=== PATIENT | male | born 1985 | race Hispanic/Latino ===

== ENCOUNTER 2023-12-24 17:55 | Emergency (ER) | payer SELFPAY ==
--- OUTSIDE RECORDS SUMMARY | 2023-12-24 17:59 | XMS REPORT | Continuity of Care Document ---
Author Name Unknown Address [address] [facility] [address] [place] [address] [facility] Address [address] [facility] [address] [place] [address] Care Team Providers Care Ways Operator Name Role Phone Raisa Mitchell Primary Care Physician [phone] Medications Ordered Medication Name Filled Medication Name Start Date Stop Date Current Medication? Ordering Clinician Indication Dosage Frequency Signature (SIG) Comments Components Source lisinopril 20 mg tablet 08-20 00:00: 00 Yes 1mg Liam De La Vega levothyroxi ne 100 mcg tablet 08-20 00:00: 00 Yes 1mcg Liam De La Vega TAKE 1 TABLET DAILY. 11-22 00:00: 00 Yes 20 Liamswathi De La Vega TAKE 1 TABLET DAILY. 11-22 00:00: 00 08-20 00:00 :00 No 100 Liam De La Vega TAKE 1 TABLET DAILY. 06-13 00:00: 00 08-20 00:00 :00 No 20 Liam Yamel De La Vega TAKE 1 TABLET DAILY. 06-13 00:00: 00 08-20 00:00 :00 No 100 Liam Yamel De La Vega Dose Unknown 10-11 00:00: 00 Yes Liam Yamel De La Vega levothyroxi ne 100 mcg tablet 10-09 00:00: 00 Yes 1mcg Liam F Ceferino Dose Unknown 10-09 00:00: 00 Yes Liam F Ceferino Dose Unknown 10-08 00:00: 00 Yes Liam Yamel De La Vega levothyroxi ne 100 mcg tablet 10-08 00:00: 00 Yes 1mcg Liam F Ceferino Dose Unknown 10-08 00:00: 00 Yes Liamswathi De La Vega Vital Signs Vital Name Observation Time Observation Value Comments S ource Respiratory Rate 2023-08-21 10:23:00 Liam F Ceferino BP Systolic 2023-08-21 10:23:00 150 mm[Hg] Step hen F Ceferino BP Diastolic 2023-08-21 10:23:00 93 mm[Hg] Heath phen F Ceferino Weight Measured 2023-08-21 10:23:00 243.20 pounds Liam F Ceferino Height Measured 2023-08-21 10:23:00 67.00 inches Liam F Ceferino Body Temperature 2023-08-21 10:23:00 98.10 degrees Liam F Ceferino Heart Rate 2023-08-21 10:23:00 88.00 /min Deneen en F Ceferino BP Systolic 2022-01-14 11:03:00 125 mm[Hg] Step hen F Ceferino BP Diastolic 2022-01-14 11:03:00 91 mm[Hg] Heath phen F Ceferino Weight Measured 2022-01-14 11:03:00 256.40 pounds Liam F Ceferino Height Measured 2022-01-14 11:03:00 67.00 inches Liam F Ceferino Body Temperature 2022-01-14 11:03:00 98.30 degrees Liam F Ceferino Heart Rate 2022-01-14 11:03:00 87.00 /min Deneen en F Ceferino Respiratory Rate 2022-01-14 11:03:00 18.00 /min Liam F Ceferino BP Systolic 2021-10-08 13:42:00 126 mm[Hg] Step hen F Ceferino BP Diastolic 2021-10-08 13:42:00 84 mm[Hg] Heath phen F Ceferino Weight Measured 2021-10-08 13:42:00 251.60 pounds Liam F Ceferino Height Measured 2021-10-08 13:42:00 Liam F Ceferino Body Temperature 2021-10-08 13:42:00 98.20 degrees Liam F Ceferino Heart Rate 2021-10-08 13:42:00 104.00 /min Step hen F Ceferino Respiratory Rate 2021-10-08 13:42:00 18.00 /min Liam F Ceferino Encounters Start Date/Time End Date/Time Encounter Type Admission Type Attending [facility] Care Department Encounter ID Source 2023-08-21 10:22:50 2023-08-21 10:22:50 Outpatient [facility] [id number] Liam De La Vega 2023-08-21 00:00:00 2023-08-21 00:00:00 Outpatient Visit [facility] [id number] Liam De La Vega 2022-06-13 00:00:00 2022-06-13 00:00:00 Outpatient Visit [facility] [id number] Liam De La Vega 2022-01-14 00:00:00 2022-01-14 00:00:00 Outpatient Visit [facility] [id number] Liam De La Vega Results Test Description Test Time Test Comments Results Result Co mments Source TSH, THIRD [id number] 04:22:03* Test Item Value Reference Range Interpretation Comme nts TSH, THIRD GENERATION (test code = 2821) 1.810 UIU/ML 0.400-4.100 UNLESS OTHERWISE INDICATED, ALL TESTING PERFORMED AT [facility] [address] [place] [address] DEWATERER OPERATOR: CARLOS MANUEL MATHEWS M.D. CLIA NUMBER [id number] [facility] [place]. [id number] COMPREHENSIVE METABOLIC [id number] 04:18:55* Test Item Value Reference Range Interpretation Comme nts GLUCOSE (test code = 2217) 94 MG/DL 70-99 BUN (test code = 2208) 15 MG/DL 6-20 CREATININE (test code = 2214) 1.02 MG/DL 0.80-1.40 eGFR (2020 CKD-EPI) (test co de = 32211) 98 ML/MIN/1.73 >60 CALC BUN/CREAT (test code = 2235) 15 RATIO 6-28 SODIUM (test code = 2231) 138 MEQ/L 133-146 POTASSIUM (test code = 2228) 4.7 MEQ/L 3.5-5.4 CHLORIDE (test code = 2215) 100 MEQ/L 95-107 CARBON DIOXIDE (test code = 2206) 24 MEQ/L 19-31 CALCIUM (test code = 2208) 10.0 MG/DL 8.5-10.5 PROTEIN, TOTAL (test code = 2228) 7.2 G/DL 6.1-8.3 ALBUMIN (test code = 2200) 4.3 G/DL 3.5-5.2 CALC GLOBULIN (test code = 2240) 2.9 G/DL 1.9-3.7 CALC A/G RATIO (test code = 223) 1.5 RATIO 1.0-2.6 BILIRUBIN, TOTAL (test code = 2206) 0.3 MG/DL <=1.2 ALKALINE PHOSPHATASE (test code = 2203) 85 U/L 40-117 AST (test code = 221) 22 U/L 9-50 ALT (test code = 2218) 30 U/L 5-50 LIPID [id number] 04:18:55* Test Item Value Reference Range Interpretation Comme nts CHOLESTEROL (test code = 2209) 238 MG/DL <200 H TRIGLYCERIDES (test code = 2231) 197 MG/DL <150 H HDL CHOLESTEROL (test code = 2219) 54 MG/DL >39 CALC LDL CHOL (test code = 2236) 150 MG/DL <100 H NOTE: CALCULATED LDL IS BASED ON BENTON-MICHAELS METHOD WHICHINCLUDES ADJUSTABLE TRIGLYCERIDE:VLDL CHOLESTEROL RATIO.THIS FACTOR VARIES BY MEASURED TRIGLYCERIDE AND NON-HDLCHOLESTEROL CONCENTRATIONS WITH INCREASED CALCULATED LDL SEENIN HIGHER TRIGLYCERIDE OR LOWER NON-HDL SPECIMENS. FOR MOREINFORMATION, SEE CLIENT ANNOUNCEMENT AT [email or web address] [email or web address] RATIO LDL/HDL (test code = 2237) 2.78 RATIO <3.55 CBC W/AUTO DIFF WITH [id number] 02:29:04* Test Item Value Reference Range Interpretation Comme nts WBC (test code = 1001) 8.4 K/UL 3.5-11.0 RBC (test code = 1002) 5.18 M/UL 4.50-6.10 HEMOGLOBIN (test code = 1003) 14.7 G/DL 13.5-17.0 HEMATOCRIT (test code = 1004) 43.7 % 40.0-51.0 MCV (test code = 1005) 84.4 fL 80.0-99.0 MCH (test code = 1006) 28.4 PG 25.0-33.0 MCHC (test code = 1007) 33.6 G/DL 31.0-36.0 RDW (test code = 1038) 12.5 % 11.5-15.0 NEUTROPHILS (test code = 1008) 71.8 % LYMPHOCYTES (test code = 1010) 22.6 % MONOCYTES (test code = 1011) 3.8 % EOSINOPHILS (test code = 1012) 1.2 % BASOPHILS (test code = 1013) 0.4 % IMMATURE GRANULOCYTES (test code = 1036) 0.2 % NUCLEATED RBCS (test code = 1065) 0.0 /100 WBC'S See_Comment [Automated messa ge] The system which generated this result transmitted reference range: 0.0. The reference range was not used to interpret this result as normal/abnormal. PLATELET COUNT (test code = 1015) 374 K/UL 130-400 ABSOLUTE NEUTROPHILS (test code = 1066) 6.02 K/UL 1.50-7.50 ABSOLUTE LYMPHOCYTES (test code = 1067) 1.89 K/UL 1.00-4.00 ABSOLUTE MONOCYTES (test code = 1068) 0.32 K/UL 0.20-1.00 ABSOLUTE EOSINOPHILS (test code = 1040) 0.10 K/UL 0.00-0.50 ABSOLUTE BASOPHILS (test code = 1069) 0.03 K/UL 0.00-0.20 ABS IMMATURE GRANULOCYTES (test code = 1020) 0.02 K/UL 0.00-0.10 ABS NUCLEATED RBCS (test code = 15083) 0.00 K/UL 0.00-0.11 TSH, THIRD [id number] 05:27:20* Test Item Value Reference Range Interpretation Comme nts TSH, THIRD GENERATION (test code = 2821) 2.730 UIU/ML 0.400-4.100 UNLESS OTHERWISE INDICATED, [facility] [address] [place] [address] DEWATERER OPERATOR: FIONA CONTI M.D. CLIA NUMBER [id number] [place]. [id number] TSH, THIRD [id number] 00:00:00* Test Item Value Reference Range Interpretation Comme nts TSH, THIRD GENERATION (test code = 2821) 2.730 UIU/ML AMBERLY Yan [id number] 00:00:00* Test Item Value Reference Range Interpretation Comme nts TSH, THIRD GENERATION (test code = 2821) 2.730 UIU/ML AMBERLY Yan [id number] 00:00:00* Test Item Value Reference Range Interpretation Comme lizzie TSH, THIRD GENERATION (test code = 2821) 2.730 UIU/ML AMBERLY Yan [id number] 06:27:00* Test Item Value Reference Range Interpretation Comme lizzie TSH, THIRD GENERATION (test code = 2821) 4.600 UIU/ML 0.400-4.100 H UNLESS OTHERWISE INDICATED, ALL TESTING PERFORMED [facility] [address] [place] [address] DEWATERER OPERATOR: FIONA CONTI M.D. CLIA NUMBER [id number] [facility] [place]. [id number] COMPREHENSIVE METABOLIC [id number] 06:03:59* Test Item Value Reference Range Interpretation Comme nts GLUCOSE (test code = 2217) 98 MG/DL 70-99 BUN (test code = 2208) 35 MG/DL 6-20 H CREATININE (test code = 2214) 1.41 MG/DL 0.80-1.40 H eGFR (2020 CKD-EPI) (test code = 49823) 67 ML/MIN/1.73 >60 CALC BUN/CREAT (test code = 2235) 25 RATIO 6-28 SODIUM (test code = 2231) 139 MEQ/L 133-146 POTASSIUM (test code = 2228) 3.9 MEQ/L 3.5-5.4 CHLORIDE (test code = 2215) 98 MEQ/L 95-107 CARBON DIOXIDE (test code = 2206) 27 MEQ/L 19-31 CALCIUM (test code = 2209) 10.2 MG/DL 8.5-10.5 PROTEIN, TOTAL (test code = 2229) 7.5 G/DL 6.1-8.3 ALBUMIN (test code = 2201) 4.6 G/DL 3.5-5.2 CALC GLOBULIN (test code = 2240) 2.9 G/DL 1.9-3.7 CALC A/G RATIO (test code = 2234) 1.6 RATIO 1.0-2.6 BILIRUBIN, TOTAL (test code = 2207) 0.3 MG/DL See_Comment [Automated me ssage] The system which generated this result transmitted reference range: <=1.2. The reference range was not used to interpret this result as normal/abnormal. ALKALINE PHOSPHATASE (test code = 4) 67 U/L 40-112 AST (test code = 2218) 27 U/L 9-50 ALT (test code = 2219) 38 U/L 5-50 LIPID [id number] 06:03:59* Test Item Value Reference Range Interpretation Comme nts CHOLESTEROL (test code = 2210) 240 MG/DL <200 H TRIGLYCERIDES (test code = 2232) 323 MG/DL <150 H HDL CHOLESTEROL (test code = 0) 45 MG/DL >39 CALC LDL CHOL (test code = 7) 145 MG/DL <100 H NOTE: CALCULATED LDL IS BASED ON BENTON-MICHAELS METHOD WHICHINCLUDES ADJUSTABLE TRIGLYCERIDE:VLDL CHOLESTEROL RATIO.THIS FACTOR VARIES BY MEASURED TRIGLYCERIDE AND NON-HDLCHOLESTEROL CONCENTRATIONS WITH INCREASED CALCULATED LDL SEENIN HIGHER TRIGLYCERIDE OR LOWER NON-HDL SPECIMENS. FOR MOREINFORMATION, SEE CLIENT ANNOUNCEMENT AT [email or web address] RISK RATIO LDL/HDL (test code = 2238) 3.22 RATIO <3.55 CBC W/AUTO DIFF WITH [id number] 04:23:01* Test Item Value Reference Range Interpretation Comme nts WBC (test code = 1001) 8.7 K/UL 3.5-11.0 RBC (test code = 1002) 4.40 M/UL 4.50-6.10 L HEMOGLOBIN (test code = 1003) 12.8 G/DL 13.5-17.0 L HEMATOCRIT (test code = 1004) 37.1 % 40.0-51.0 L MCV (test code = 1005) 84.3 fL 80.0-99.0 MCH (test code = 1006) 29.1 PG 25.0-33.0 MCHC (test code = 1007) 34.5 G/DL 31.0-36.0 RDW (test code = 1038) 12.2 % 11.5-15.0 NEUTROPHILS (test code = 1008) 61.7 % LYMPHOCYTES (test code = 1010) 29.6 % MONOCYTES (test code = 1011) 7.4 % EOSINOPHILS (test code = 1012) 0.9 % BASOPHILS (test code = 1013) 0.2 % IMMATURE GRANULOCYTES (test code = 1036) 0.2 % NUCLEATED RBCS (test code = 1065) 0.0 /100 WBC'S See_Comment [Automated Dreamforgea ge] The system which generated this result transmitted reference range: 0.0. The reference range was not used to interpret this result as normal/abnormal. PLATELET COUNT (test code = 1015) 347 K/UL 130-400 ABSOLUTE NEUTROPHILS (test code = 1066) 5.33 K/UL 1.50-7.50 ABSOLUTE LYMPHOCYTES (test code = 1067) 2.56 K/UL 1.00-4.00 ABSOLUTE MONOCYTES (test code = 1068) 0.64 K/UL 0.20-1.00 ABSOLUTE EOSINOPHILS (test code = 1040) 0.08 K/UL 0.00-0.50 ABSOLUTE BASOPHILS (test code = 1069) 0.02 K/UL 0.00-0.20 ABS IMMATURE GRANULOCYTES (test code = 1020) 0.02 K/UL 0.00-0.10 ABS NUCLEATED RBCS (test code = 79276) 0.00 K/UL 0.00-0.11 COMPREHENSIVE METABOLIC [id number] 00:00:00* Test Item Value Reference Range Interpretation Comme nts GLUCOSE (test code = 2217) 98 MG/DL BUN (test code = 2208) 35 MG/DL CREATININE (test code = 2214) 1.41 MG/DL eGFR (2020 CKD-EPI) (test co de = 96335) 67 ML/MIN/1.73 CALC BUN/CREAT (test code = 2235) 25 RATIO SODIUM (test code = 2231) 139 MEQ/L POTASSIUM (test code = 2228) 3.9 MEQ/L CHLORIDE (test code = 2215) 98 MEQ/L CARBON DIOXIDE (test code = 2206) 27 MEQ/L CALCIUM (test code = 2209) 10.2 MG/DL PROTEIN, TOTAL (test code = 2229) 7.5 G/DL ALBUMIN (test code = 2201) 4.6 G/DL CALC GLOBULIN (test code = 2240) 2.9 G/DL CALC A/G RATIO (test code = 2234) 1.6 RATIO BILIRUBIN, TOTAL (test code = 2207) 0.3 MG/DL ALKALINE PHOSPHATASE (test code = 2204) 67 U/L AST (test code = 2218) 27 U/L ALT (test code = 2219) 38 U/L Liam De La VegaCBC W/AUTO [id number] 00:00:00* Test Item Value Reference Range Interpretation Comme nts WBC (test code = 1001) 8.7 K/UL RBC (test code = 1002) 4.40 M/UL HEMOGLOBIN (test code = 1003) 12.8 G/DL HEMATOCRIT (test code = 1004) 37.1 % MCV (test code = 1005) 84.3 fL MCH (test code = 1006) 29.1 PG MCHC (test code = 1007) 34.5 G/DL RDW (test code = 1038) 12.2 % NEUTROPHILS (test code = 1008) 61.7 % LYMPHOCYTES (test code = 1010) 29.6 % MONOCYTES (test code = 1011) 7.4 % EOSINOPHILS (test code = 1012) 0.9 % BASOPHILS (test code = 1013) 0.2 % IMMATURE GRANULOCYTES (test code = 1036) 0.2 % NUCLEATED RBCS (test code = 1065) 0.0 /100WBC'S PLATELET COUNT (test code = 1015) 347 K/UL ABSOLUTE NEUTROPHILS (test c ode = 1066) 5.33 K/UL ABSOLUTE LYMPHOCYTES (test c ode = 1067) 2.56 K/UL ABSOLUTE MONOCYTES (test cod e = 1068) 0.64 K/UL ABSOLUTE EOSINOPHILS (test c ode = 1040) 0.08 K/UL ABSOLUTE BASOPHILS (test cod e = 1069) 0.02 K/UL ABS IMMATURE GRANULOCYTES (t est code = 1020) 0.02 K/UL ABS NUCLEATED RBCS (test cod e = 52463) 0.00 K/UL Liam De La VegaLIPID [id number] 00:00:00* Test Item Value Reference Range Interpretation Comme nts CHOLESTEROL (test code = 2210) 240 MG/DL TRIGLYCERIDES (test code = 2232) 323 MG/DL HDL CHOLESTEROL (test code = 2220) 45 MG/DL CALC LDL CHOL (test code = 2237) 145 MG/DL RISK RATIO LDL/HDL (test cod e = 2238) 3.22 RATIO Liam De La [id number] 00:00:00* Test Item Value Reference Range Interpretation Comme nts TSH, THIRD GENERATION (test code = 2821) 4.600 UIU/ML Liam De La VegaCOMPREHENSIVE METABOLIC [id number] 00:00:00* Test Item Value Reference Range Interpretation Comme nts GLUCOSE (test code = 2217) 98 MG/DL BUN (test code = 2208) 35 MG/DL CREATININE (test code = 2214) 1.41 MG/DL eGFR (2020 CKD-EPI) (test co de = 75112) 67 ML/MIN/1.73 CALC BUN/CREAT (test code = 2235) 25 RATIO SODIUM (test code = 2231) 139 MEQ/L POTASSIUM (test code = 2228) 3.9 MEQ/L CHLORIDE (test code = 2215) 98 MEQ/L CARBON DIOXIDE (test code = 2206) 27 MEQ/L CALCIUM (test code = 2209) 10.2 MG/DL PROTEIN, TOTAL (test code = 2229) 7.5 G/DL ALBUMIN (test code = 2201) 4.6 G/DL CALC GLOBULIN (test code = 2240) 2.9 G/DL CALC A/G RATIO (test code = 2234) 1.6 RATIO BILIRUBIN, TOTAL (test code = 2207) 0.3 MG/DL ALKALINE PHOSPHATASE (test code = 2204) 67 U/L AST (test code = 2218) 27 U/L ALT (test code = 2219) 38 U/L Liam De La VegaCBC W/AUTO [id number] 00:00:00* Test Item Value Reference Range Interpretation Comme nts WBC (test code = 1001) 8.7 K/UL RBC (test code = 1002) 4.40 M/UL HEMOGLOBIN (test code = 1003) 12.8 G/DL HEMATOCRIT (test code = 1004) 37.1 % MCV (test code = 1005) 84.3 fL MCH (test code = 1006) 29.1 PG MCHC (test code = 1007) 34.5 G/DL RDW (test code = 1038) 12.2 % NEUTROPHILS (test code = 1008) 61.7 % LYMPHOCYTES (test code = 1010) 29.6 % MONOCYTES (test code = 1011) 7.4 % EOSINOPHILS (test code = 1012) 0.9 % BASOPHILS (test code = 1013) 0.2 % IMMATURE GRANULOCYTES (test code = 1036) 0.2 % NUCLEATED RBCS (test code = 1065) 0.0 /100WBC'S PLATELET COUNT (test code = 1015) 347 K/UL ABSOLUTE NEUTROPHILS (test c ode = 1066) 5.33 K/UL ABSOLUTE LYMPHOCYTES (test c ode = 1067) 2.56 K/UL ABSOLUTE MONOCYTES (test cod e = 1068) 0.64 K/UL ABSOLUTE EOSINOPHILS (test c ode = 1040) 0.08 K/UL ABSOLUTE BASOPHILS (test cod e = 1069) 0.02 K/UL ABS IMMATURE GRANULOCYTES (t est code = 1020) 0.02 K/UL ABS NUCLEATED RBCS (test cod e = 32253) 0.00 K/UL Liam De La VegaLIPID [id number] 00:00:00* Test Item Value Reference Range Interpretation Comme nts CHOLESTEROL (test code = 2210) 240 MG/DL TRIGLYCERIDES (test code = 2232) 323 MG/DL HDL CHOLESTEROL (test code = 2220) 45 MG/DL CALC LDL CHOL (test code = 2237) 145 MG/DL RISK RATIO LDL/HDL (test cod e = 2238) 3.22 RATIO Liam De La [id number] 00:00:00* Test Item Value Reference Range Interpretation Comme nts TSH, THIRD GENERATION (test code = 2821) 4.600 UIU/ML Liam Montesinos [place] [id number] 00:00:00* Test Item Value Reference Range Interpretation Comme nts GLUCOSE (test code = 2217) 98 MG/DL BUN (test code = 2208) 35 MG/DL CREATININE (test code = 2214) 1.41 MG/DL eGFR (2020 CKD-EPI) (test co de = 69891) 67 ML/MIN/1.73 CALC BUN/CREAT (test code = 2235) 25 RATIO SODIUM (test code = 2231) 139 MEQ/L POTASSIUM (test code = 2228) 3.9 MEQ/L CHLORIDE (test code = 2215) 98 MEQ/L CARBON DIOXIDE (test code = 2206) 27 MEQ/L CALCIUM (test code = 2209) 10.2 MG/DL PROTEIN, TOTAL (test code = 2229) 7.5 G/DL ALBUMIN (test code = 2201) 4.6 G/DL CALC GLOBULIN (test code = 2240) 2.9 G/DL CALC A/G RATIO (test code = 2234) 1.6 RATIO BILIRUBIN, TOTAL (test code = 2207) 0.3 MG/DL ALKALINE PHOSPHATASE (test code = 2204) 67 U/L AST (test code = 2218) 27 U/L ALT (test code = 2219) 38 U/L Liam De La VegaCBC W/AUTO [id number] 00:00:00* Test Item Value Reference Range Interpretation Comme nts WBC (test code = 1001) 8.7 K/UL RBC (test code = 1002) 4.40 M/UL HEMOGLOBIN (test code = 1003) 12.8 G/DL HEMATOCRIT (test code = 1004) 37.1 % MCV (test code = 1005) 84.3 fL MCH (test code = 1006) 29.1 PG MCHC (test code = 1007) 34.5 G/DL RDW (test code = 1038) 12.2 % NEUTROPHILS (test code = 1008) 61.7 % LYMPHOCYTES (test code = 1010) 29.6 % MONOCYTES (test code = 1011) 7.4 % EOSINOPHILS (test code = 1012) 0.9 % BASOPHILS (test code = 1013) 0.2 % IMMATURE GRANULOCYTES (test code = 1036) 0.2 % NUCLEATED RBCS (test code = 1065) 0.0 /100WBC'S PLATELET COUNT (test code = 1015) 347 K/UL ABSOLUTE NEUTROPHILS (test c ode = 1066) 5.33 K/UL ABSOLUTE LYMPHOCYTES (test c ode = 1067) 2.56 K/UL ABSOLUTE MONOCYTES (test cod e = 1068) 0.64 K/UL ABSOLUTE EOSINOPHILS (test c ode = 1040) 0.08 K/UL ABSOLUTE BASOPHILS (test cod e = 1069) 0.02 K/UL ABS IMMATURE GRANULOCYTES (t est code = 1020) 0.02 K/UL ABS NUCLEATED RBCS (test cod e = 70834) 0.00 K/UL Liam De La VegaLIPID [id number] 00:00:00* Test Item Value Reference Range Interpretation Comme nts CHOLESTEROL (test code = 2210) 240 MG/DL TRIGLYCERIDES (test code = 2232) 323 MG/DL HDL CHOLESTEROL (test code = 2220) 45 MG/DL CALC LDL CHOL (test code = 2237) 145 MG/DL RISK RATIO LDL/HDL (test cod e = 2238) 3.22 RATIO Liam De La [id number] 00:00:00* Test Item Value Reference Range Interpretation Comme nts TSH, THIRD GENERATION (test code = 2821) 4.600 UIU/ML Liam De La Vega Notes Date/Time Note Provider Source Liam Celaya [facility]2023-02-23 00:00:00 Liam Celaya [facility]2022-09-26 00:00:00 Liam Celaya [facility]
--- NOTE | 2023-12-24 19:03 | RAD REPORT ---
EXAM DESCRIPTION: CT - Head Brain Wo Cont - 12/24/2023 6:48 pm CLINICAL HISTORY: Headache COMPARISON: none TECHNIQUE: Computed axial tomography of the head was obtained. IV contrast was not requested. All CT scans are performed using dose optimization technique as appropriate and may include automated exposure control or mA/KV adjustment according to patient size. FINDINGS: An intracranial bleed is not seen The ventricles are normal in caliber No significant hypodense areas within the brain visualized No extra-axial fluid collection is noted. Fluid within the sinuses/ mastoids is not seen IMPRESSION: No acute intracranial abnormality is seen If patient's symptoms persist MRI of the brain would be recommended
[2023-12-24] MEDS ORDERED: KETOROLAC 30 MG/ML INJ ONE (19:34)
[2023-12-24] MEDS ORDERED: dexAMETHasone 10 MG/ML VIAL ONE (19:34)
[2023-12-24] MEDS ORDERED: DIPHENHYDRAMINE 50 MG/ML VIAL ONE (19:35)
[2023-12-24] MEDS ORDERED: NA CHLORIDE 0.9% 1,000 ML ONE (19:35)
[2023-12-24] MEDS ORDERED: METOCLOPRAMIDE 10 MG/2mL INJ ONE (19:35)
--- NOTE | 2023-12-24 21:02 | EDPHYS ---
Physician Documentation [facility] Name: George Villegas Age: 38 yrs Sex: Male : 1985 Arrival Date: 12/24/2023 Time: 17:55 Bed 6 Private MD: ED Physician Abbey Moss HPI: 12/23 21:38 This 38 yrs old Male presents to ER via Ambulatory with complaints of Headache.kb 21:38 Pt reports migraine to right side of head for one week. States he has been taking kb tylenol and ibuprofen which makes it go away for a few hours but it returns. Reports nausea, photophobia. States pain is also worse with noise and movement. Historical: - Allergies: 18:03 No Known Allergies; kc6 - PMHx: 18:03 Hypertensive disorder; Hypothyroidism; kc6 - PSHx: 18:03 None; kc6 - Immunization history:: Adult Immunizations up to date. - Infectious Disease History:: Denies. - Social history:: Smoking status: Patient reports the use of cigarette tobacco products, smokes one pack cigarettes per day. ROS: 21:38 Constitutional: As per HPI kb Exam: 21:38 Constitutional: This is a well developed, well nourished patient who is awake, alert, kb and in no acute distress. Head/Face: Normocephalic, atraumatic. Eyes: Pupils equal round and reactive to light, extra-ocular motions intact. Lids and lashes normal. Conjunctiva and sclera are non-icteric and not injected. Cornea within normal limits. Periorbital areas with no swelling, redness, or edema. ENT: Moist Mucous membranes Cardiovascular: Regular rate Respiratory: Respirations even and unlabored. No increased work of breathing. Talking in full sentences Abdomen/GI: Soft, non-tender. No distention Skin: Warm, dry with normal turgor. Normal color. MS/ Extremity: Pulses equal, no cyanosis. Neurovascular intact. Full, normal range of motion. Neuro: Awake and alert, GCS 15, oriented to person, place, time, and situation. Moves all extremities. Normal gait. Vital Signs: 18:01 BP 141 / 95; Pulse 89; Resp 17 S; Temp 97.2(TE); Pulse Ox 96% on R/A; Height 5 ft. 11 kc6 in. (R); Pain 10/10; 19:20 BP 117 / 81; Pulse 82; Resp 17 S; Pulse Ox 97% on R/A; ha1 20:00 BP 121 / 85; Pulse 82; Resp 17 S; Pulse Ox 98% on R/A; ha1 21:00 BP 110 / 94; Pulse 81; Resp 17 S; Pulse Ox 98% on R/A; ha1 18:01 Pain Scale: Adult kc6 Louise Coma Score: 21:34 Eye Response: spontaneous(4). Motor Response: obeys commands(6). Verbal Response: kb oriented(5). Total: 15. MDM: 18:04 Patient medically screened. kb 21:34 Differential diagnosis: migraine, tension headache. Data reviewed: vital signs, nurses kb notes. Counseling: I had a detailed discussion with the patient and/or guardian regarding the historical points, exam findings, and any diagnostic results supporting the discharge/admit diagnosis, radiology results, the need for outpatient follow up, a family practitioner, to return to the emergency department if symptoms worsen or persist or if there are any questions or concerns that arise at home. 12/23 18:07 Order name: CT Head Brain wo Cont; Complete Time: 19:05 kb 12/23 19:06 Order name: IV Start; Complete Time: 19:31 kb Administered Medications: 19:46 Drug: NS 0.9% IV 1000 ml IV at 1000 ml once Route: IV; Rate: 1000 ml; Site: right ha1 antecubital; 21:12 Follow up: Response: No adverse reaction; IV Status: Completed infusion; IV Intake: ha1 1000ml 19:46 Drug: Ketorolac IVP 15 mg IVP once Route: IVP; Site: right antecubital; ha1 20:10 Follow up: Response: No adverse reaction; Marked relief of symptoms; Pain is decreased ha1 19:48 Drug: diphenhydrAMINE IVP 12.5 mg IVP once Route: IVP; Site: right antecubital; ha1 20:10 Follow up: Response: No adverse reaction; Marked relief of symptoms ha1 19:50 Drug: Decadron - Dexamethasone IVP 10 mg IVP once Route: IVP; Site: right antecubital; ha1 20:10 Follow up: Response: No adverse reaction; Marked relief of symptoms ha1 19:50 Drug: metoCLOPramide IVP 10 mg IVP once; over 1 to 2 minutes Route: IVP; Site: right ha1 antecubital; 20:10 Follow up: Response: No adverse reaction; Marked relief of symptoms ha1 21:03 Drug: HYDROcodone-acetaminophen PO 5 mg-325 mg 1 tabs PO once Route: PO; ha1 21:12 Follow up: Response: No adverse reaction; Pain is decreased; RASS: Alert and Calm (0) ha1 Disposition Summary: 12/24/23 21:01 Discharge Ordered Notes: Location: Home kb Condition: Stable kb Diagnosis - Headache kb Followup: kb - With: Emergency Department - When: As needed - Reason: Worsening of condition Followup: kb - With: Private Physician - When: 2 - 3 days - Reason: Recheck today's complaints, Continuance of care, Re-evaluation by your physician Discharge Instructions: - Discharge Summary Sheet kb - Migraine Headache, [id number] kb - General Headache Without Cause, [id number] kb Forms: - Medication Reconciliation Form kb - Antibiotic Education kb - Prescription Opioid Use kb - Patient Portal Instructions kb - Leadership Thank You Letter kb Signatures: Dispatcher [employer] EDFrancine Taylor, LAMP SHADE JOINER-C LAMP SHADE JOINER-Tati Barnard RN RN ha1 Glo Solis RN RN kc6 Corrections: (The following items were deleted from the chart) 21:01 21:01 Person with feared health complaint in whom no diagnosis is made kb kb
--- NOTE | 2023-12-24 21:02 | ER ---
Nurse's Notes [facility] Name: George Villegas Age: 38 yrs Sex: Male : 1985 Arrival Date: 12/24/2023 Time: 17:55 Bed 6 Private MD: Diagnosis: Headache Presentation: 12/23 18:01 Chief complaint: Patient states: migraine x1 week to the right temporal area and eye. [facility] Coronavirus screen: At this time, the client does not indicate any symptoms associated with coronavirus-19. Ebola Screen: No symptoms or risks identified at this time. Initial Sepsis Screen: Does the patient meet any 2 criteria? No. Patient's initial sepsis screen is negative. Does the patient have a suspected source of infection? No. Patient's initial sepsis screen is negative. Risk Assessment: Do you want to hurt yourself or someone else? Patient reports no desire to harm self or others. Onset of symptoms was December 24, 2023. 18:01 Method Of Arrival: Ambulatory [facility] 18:01 Acuity: JOSÉ MANUEL 4 [facility] Triage Assessment: 18:03 Headache History: The patient has had previous headaches and this one is similar to [facility] previous episodes. 21:14 Pain: Also complains of no other associated symptoms. ha1 Historical: - Allergies: 18:03 No Known Allergies; kc6 - PMHx: 18:03 Hypertensive disorder; Hypothyroidism; 6 - PSHx: 18:03 None; kc6 - Immunization history:: Adult Immunizations up to date. - Infectious Disease History:: Denies. - Social history:: Smoking status: Patient reports the use of cigarette tobacco products, smokes one pack cigarettes per day. Screenin:30 [facility] ED Fall Risk Assessment (Adult) History of falling in the last 3 months, ha1 including since admission No falls in past 3 months (0 pts) Confusion or Disorientation No (0 pts) Intoxicated or Sedated No (0 pts) Impaired Gait No (0 pts) Mobility Assist Device Used No (0 pt) Altered Elimination No (0 pt) Score/Fall Risk Level 0 - 2 = Low Risk Oriented to surroundings, Maintained a safe environment, Hourly rounding (assess needs \T\ fall precautionary measures) done. Abuse screen: Denies threats or abuse. Denies injuries from another. Nutritional screening: No deficits noted. Tuberculosis screening: No symptoms or risk factors identified. Assessment: 19:30 General: Appears uncomfortable, Behavior is calm, cooperative. Pain: Complains of pain ha1 in headache Pain does not radiate. Pain currently is 9 out of 10 on a pain scale. Quality of pain is described as aching, Pain began 1 week ago. Neuro: Level of Consciousness is awake, alert, obeys commands, Oriented to person, place, time, situation, Reports headache. Cardiovascular: Capillary refill < 3 seconds Patient's skin is warm and dry. Respiratory: Airway is patent Respiratory effort is even, unlabored, Respiratory pattern is regular, symmetrical. GI: Abdomen is round non-distended. : No signs and/or symptoms were reported regarding the genitourinary system. Derm: Skin is pink, warm \T\ dry. Musculoskeletal: Circulation, motion, and sensation intact. Range of motion: intact in all extremities. 20:10 Reassessment: Patient and/or family updated on plan of care and expected duration. Pain ha1 level reassessed. Patient is alert, oriented x 3, equal unlabored respirations, skin warm/dry/pink. pain 5/10 Patient states feeling better. Patient states symptoms have improved. 21:13 Reassessment: Patient and/or family updated on plan of care and expected duration. Pain ha1 level reassessed. Patient is alert, oriented x 3, equal unlabored respirations, skin warm/dry/pink. pain 4/10 Patient states feeling better. Patient states symptoms have improved. Vital Signs: 18:01 BP 141 / 95; Pulse 89; Resp 17 S; Temp 97.2(TE); Pulse Ox 96% on R/A; Height 5 ft. 11 kc6 in. (R); Pain 10/10; 19:20 BP 117 / 81; Pulse 82; Resp 17 S; Pulse Ox 97% on R/A; ha1 20:00 BP 121 / 85; Pulse 82; Resp 17 S; Pulse Ox 98% on R/A; ha1 21:00 BP 110 / 94; Pulse 81; Resp 17 S; Pulse Ox 98% on R/A; ha1 18:01 Pain Scale: Adult kc6 Louise Coma Score: 21:34 Eye Response: spontaneous(4). Motor Response: obeys commands(6). Verbal Response: kb oriented(5). Total: 15. ED Course: 17:59 Patient arrived in ED. mg5 18:03 Triage completed. kc6 18:03 Arm band placed on. kc6 18:04 [facility]C [facility]. kb 18:04 Abbey Moss MD is Attending Physician. kb 18:50 CT Head Brain wo Cont In Process Unspecified. EDMS 19:00 Patient has correct armband on for positive identification. Placed in gown. Bed in low ha1 position. Call light in reach. Side rails up X 1. Adult w/ patient. 19:31 Tati Bashir, RN is Primary Nurse. ha1 19:31 Inserted saline lock: 22 gauge in right antecubital area, using aseptic technique. rv1 Flushed with 10 mL NS. 21:13 No provider procedures requiring assistance completed. IV discontinued, intact, ha1 bleeding controlled, No redness/swelling at site. Pressure dressing applied. 21:14 Provided Education on: following with PCP. ha1 Administered Medications: 19:46 Drug: NS 0.9% IV 1000 ml IV at 1000 ml once Route: IV; Rate: 1000 ml; Site: right ha1 antecubital; 21:12 Follow up: Response: No adverse reaction; IV Status: Completed infusion; IV Intake: ha1 1000ml 19:46 Drug: Ketorolac IVP 15 mg IVP once Route: IVP; Site: right antecubital; ha1 20:10 Follow up: Response: No adverse reaction; Marked relief of symptoms; Pain is decreased ha1 19:48 Drug: diphenhydrAMINE IVP 12.5 mg IVP once Route: IVP; Site: right antecubital; ha1 20:10 Follow up: Response: No adverse reaction; Marked relief of symptoms ha1 19:50 Drug: Decadron - Dexamethasone IVP 10 mg IVP once Route: IVP; Site: right antecubital; ha1 20:10 Follow up: Response: No adverse reaction; Marked relief of symptoms ha1 19:50 Drug: metoCLOPramide IVP 10 mg IVP once; over 1 to 2 minutes Route: IVP; Site: right ha1 antecubital; 20:10 Follow up: Response: No adverse reaction; Marked relief of symptoms ha1 21:03 Drug: HYDROcodone-acetaminophen PO 5 mg-325 mg 1 tabs PO once Route: PO; ha1 21:12 Follow up: Response: No adverse reaction; Pain is decreased; RASS: Alert and Calm (0) ha1 Medication: 20:40 VIS not applicable for this client. ha1 Intake: 21:12 IV: 1000ml; Total: 1000ml. ha1 Outcome: 21:01 Discharge ordered by MD. means 21:14 Discharged to home ambulatory, with family, ha1 21:14 Condition: stable 21:14 Discharge instructions given to patient, family, Instructed on discharge instructions, follow up and referral plans. Demonstrated understanding of instructions, follow-up care, 21:15 Patient left the ED. ha1 Signatures: Dispatcher [employer] EDMS Francine Thomas, SHAHEEDC DEMETRA-Tati Barnard RN RN ha1 Glo Solis RN RN kc6 Flori Gonzalez rv1 Jessica Yung mg5 Corrections: (The following items were deleted from the chart) 20:35 19:46 Ketorolac IVP 15 mg IVP in left antecubital ha1 ha1 20:37 20:10 Response: No adverse reaction; Marked relief of symptoms ha1 ha1 20:38 20:37 Response: No adverse reaction; Marked relief of symptoms; Pain is decreased ha1 ha1 21:13 20:30 Reassessment: Patient and/or family updated on plan of care and expected ha1 duration. Pain level reassessed. Patient is alert, oriented x 3, equal unlabored respirations, skin warm/dry/pink. Patient states feeling better. Patient states symptoms have improved. ha1
[2023-12-24] MEDS ORDERED: HYDROCODONE/APAP 5/325 MG TAB ONE (21:03)
[2023-12-24 21:20] VITALS: TEMP 97.2
[2023-12-24 21:21] VITALS: BP 121/85; O2SAT 98
== END 2023-12-24 21:15 | disposition home or self-care (01) ==
LOC: ER 17:55
DX: R51.9 Headache, unspecified (principal)
CPT/HCPCS: 70450; 96361; 96374; 96375; 99284; J1100; J1200; J2765; J7030